=== PATIENT | female | born 1970 | race Caucasian/White ===

== ENCOUNTER 2019-02-11 06:32 | Emergency (ER) | payer OTHER ==
[~2019-02-11] VITALS: Ht 160 cm; Wt 99.8 kg
[~2019-02-11 06:32] MED LIST: ALPRAZOLAM 0.50.5 M1 PO; AMLODIPINE BESYL5 MG; CIPRO500 MG PO; ESCITALOPRAM OX10 MG PO; FLAGYL500 MG PO; HYDROCHLOROTH12.5 MG; HYDROCHLOROTHIA25 M2 PO; NORCO 5-325 TA1 EAC1 PO; NORVASC5 MG PO
[2019-02-11] MEDS ORDERED: PREDNISONE 20 M20 MG PO (07:24)
[2019-02-11] MEDS ORDERED: PEPCID20 MG PO (07:24)
[2019-02-11] MEDS ORDERED: PRAVASTATIN SOD10 MG PO (07:29)
[2019-02-11 07:36] LABS: ABSOLUTE NEUTROPHILS 4.6 thou/uL (1.4-8.2); BASOPHILS 0.8 % (0.0-2.0); EOSINOPHILS 3.1 % (0.0-3.0); HEMATOCRIT 38.6 % (37.0-47.0); LYMPHOCYTES 24.9 % (24.0-44.0); MCH 29.9 pg (26.0-34.0); MCHC 33.7 g/dL (28.0-37.0); MCV 88.5 fL (80.0-100.0); MONOCYTES 5.9 % (1.0-8.0); PLATELET COUNT 270 thou/uL (150-400); POLYS 65.3 % (36.0-66.0); RBC 4.37 mil/uL (4.20-5.00); RDW 14.1 % (10.5-14.5); WBC 7.1 thou/uL (4.0-11.0)
[2019-02-11 07:42] LABS: CALCIUM 8.6 mg/dL (8.5-10.1); CREATININE 0.9 mg/dL (0.6-1.0); POTASSIUM 3.7 mmol/L (3.5-5.1)
[2019-02-11 07:48] LABS: ALBUMIN 3.6 g/dL (3.4-5.0); TOTAL BILIRUBIN 0.2 mg/dL (<0.1-1.0); TOTAL PROTEIN 6.8 g/dL (6.4-8.2)
[2019-02-11 08:35] VITALS: BP 140/78
== END 2019-02-11 08:36 | disposition home or self-care (01) ==
LOC: ER 06:32
PROVIDERS: Emergency Medicine
DX: L29.9 Pruritus, unspecified (principal); T46.1X5A Adverse effect of calcium-channel blockers, initial encounter; T46.4X5A Adverse effect of angiotensin-converting-enzyme inhibitors, initial encounter; I10 Essential (primary) hypertension; Z90.710 Acquired absence of both cervix and uterus; Z88.0 Allergy status to penicillin; Z88.1 Allergy status to other antibiotic agents; Y92.89 Other specified places as the place of occurrence of the external cause